=== PATIENT | female | born 1950 | race African-American/Black ===

== ENCOUNTER 2018-10-05 16:36 | Observation (INO) | payer MEDICARE ==
[2018-10-05] VITALS (138 sets, daily range): BP systolic 171; BP diastolic 98; PULSE 73; TEMP 98.8; O2SAT 90–100
[~2018-10-05] VITALS: Ht 157.5 cm; Wt 90.8 kg
[~2018-10-05 16:36] MED LIST: ASPIR-LOW81 MG PO; COZAAR; LABETALOL; TRIAMTERENE/HCT1 CAP PO
[2018-10-05 17:31] LABS: BASO # 0.1 (0.0-0.2); BASO % 0.8 % (0.0-2.0); EOS # 0.1 (0.0-0.7); EOS % 1.7 % (0-4.0); GRAN # 3.5 (1.4-6.5); GRAN % 46.4 % (42.2-75.2); HEMOGLOBIN 11.1 g/dl (12.5-16.0); LYMPH # 3.4 (1.2-3.4); MEAN CELL VOLUME 77 fl (80.0-100.0); MEAN CORPUSCULAR HEMOGLOBIN 24 pg (27.0-31.0); MEAN CORPUSCULAR HGB CONC 30 g/dl (33.0-37.0); MEAN PLATELET VOLUME 9.7 fl (7.4-10.4); MONO # 0.5 (0.1-0.6); PLATELET COUNT 237 K/mm3 (130-400); RED BLOOD COUNT 4.73 M/mm3 (4.10-5.30)
[2018-10-05 17:33] LABS: INR 0.9 (0.8-3.0); PROTHROMBIN TIME 10.4 SECONDS (9.7-12.8)
[2018-10-05 17:37] LABS: HEMATOCRIT 36.5 % (37.0-47.0)
[2018-10-05 17:41] LABS: ALANINE AMINOTRANSFERASE < 6 U/L (9-52); ALBUMIN 4.1 gm/dL (3.5-5.0); ALKALINE PHOSPHATASE 112 U/L (50-136); ANION GAP 7 mmol/L (7-16); AST,SGOT 19 U/L (15-37); BILIRUBIN,TOTAL 0.7 mg/dL (0.0-1.0); BLOOD UREA NITROGEN 15 mg/dL (7-17); C-REACTIVE PROTEIN 1.2 mg/dL (0.0-0.9); CALCIUM 9.3 mg/dL (8.4-10.2); CARBON DIOXIDE 26 mmol/L (22-30); CHLORIDE 107 mmol/L (98-107); CREATININE, serum 0.67 (0.52-1.25); GLUCOSE 149 mg/dL (74-106); POTASSIUM 3.5 mmol/L (3.4-5.0); SODIUM 141 mmol/L (137-145); TOTAL PROTEIN 7.1 gm/dL (6.4-8.2)
[2018-10-05 17:52] LABS: TROPONIN-I 0.062 ng/mL (0.000-0.035)
[2018-10-05] MEDS ORDERED: ACTOS 15MG TAB15 MG PO (17:58)
[2018-10-05] MEDS ORDERED: NORMODYNE200 MG PO (17:59)
[2018-10-05] MEDS ORDERED: NORVASC2.5 MG PO (17:59)
--- NOTE | 2018-10-05 19:58 | NUR ---
Called over to ED at this time and got report on patient from ONI Snyder. Patient will be brought over after CT
--- NOTE | 2018-10-05 20:44 | NUR ---
Patient arrives at this time via stretcher. Patient stands and transfers self to unit bed. She is a little wobbly on her feet but corrects quickly. Once in bed patient is attached to monitoring equipment. Assessment complete. Patient has no complaints of pain or SOB. Assisted patient with getting up to the bathroom. Walked there and back to bed with standby assist. Patient has a small amount of +1 pitting edema in her lower extremities and looks like her abdomen is full of fluid, abdomen is distended. Once settled, patient's family brought into the room. Oscar, son Amos, and granddaughter Shani. Explained to them all what the POC is and what might happen in the morning as far as testing is concerned. Oriented them to the unit and room. Explained the call light and controls on the bed. Patient has no further needs at this time. Will continue to monitor. DAWNA Alejo will be down to see her shortly.
[2018-10-05] MEDS ORDERED: NORVASC 5MG5 MG/TAB PO (22:34)
[2018-10-05] MEDS ORDERED: ASPIRIN 81M81 MG/TA2 PO (22:35)
[2018-10-05 23:09] LABS: COLLECTION METHOD CLEAN CATCH
[2018-10-05 23:16] LABS: PH 7 (5-8); SQUAMOUS EPITHELIAL 0-2 /hpf; URINE APPEARANCE Clear; URINE BACTERIA None Seen /hpf; URINE BILIRUBIN Negative (NEGATIVE); URINE BLOOD Negative (NEGATIVE); URINE COLOR Straw; URINE GLUCOSE Negative (NEGATIVE); URINE KETONE Negative (NEGATIVE); URINE LEUKOCYTE ESTERASE Negative (NEGATIVE); URINE NITRATE Negative (NEGATIVE); URINE PROTEIN(semi-quant) Negative (NEGATIVE); URINE RBC 0-2 /hpf; URINE UROBILINOGEN Negative (NEGATIVE)
[2018-10-06] VITALS (722 sets, daily range): BP systolic 133–149; BP diastolic 67–97; PULSE 67–87; TEMP 97.8–98.8; O2SAT 81–100
--- NOTE | 2018-10-06 | NUR ---
Patient resting in bed at this time. Snack was provided per request her request. Patient is NPO now. Patient has no complaints of pain, but would like to use the restroom again. Assited up, then returned to bed. Patient has had good urine output. No other needs at this time. Will continue to monitor. Call light within reach
--- NOTE | 2018-10-06 04:00 | NUR ---
Patient asleep in bed at this time. Awakens easily to noise in the room. Patient does not have any complaints of SOB or pain. Does request to get up to the bathroom. Assisted with getting up and returning to bed. Patient requests to sleep some more. No further needs at this time. Will continue to monitor. Call light within reach.
[2018-10-06 05:23] LABS: BASO # 0.1 (0.0-0.2); BASO % 0.8 % (0.0-2.0); EOS # 0.1 (0.0-0.7); GRAN # 2.5 (1.4-6.5); GRAN % 41.4 % (42.2-75.2); HEMATOCRIT 37.7 % (37.0-47.0); HEMOGLOBIN 11.4 g/dl (12.5-16.0); LYMPH % 49.5 % (20.0-51.0); MEAN CELL VOLUME 77 fl (80.0-100.0); MEAN CORPUSCULAR HEMOGLOBIN 23 pg (27.0-31.0); MEAN CORPUSCULAR HGB CONC 30 g/dl (33.0-37.0); MEAN PLATELET VOLUME 10.6 fl (7.4-10.4); MONO # 0.4 (0.1-0.6); MONO % 6.1 % (1.7-9.3); PLATELET COUNT 182 K/mm3 (130-400); RED BLOOD COUNT 4.91 M/mm3 (4.10-5.30)
[2018-10-06 05:34] LABS: ALBUMIN 3.9 gm/dL (3.5-5.0); BILIRUBIN,TOTAL 1.1 mg/dL (0.0-1.0); CALCIUM 9.2 mg/dL (8.4-10.2); CHOLESTEROL RISK RATIO 6.1; CREATININE, serum 0.58 (0.52-1.25); POTASSIUM 3.7 mmol/L (3.4-5.0)
[2018-10-06 05:50] LABS: TROPONIN-I 0.075 ng/mL (0.000-0.035)
--- NOTE | 2018-10-06 07:00 | NUR ---
REPORT RECEIVED FROM AMADOR BUNN. CARE ASSUMED.
--- NOTE | 2018-10-06 07:42 | NUR ---
Bedside report given to ONI Marin
--- NOTE | 2018-10-06 11:37 | NUR ---
SW met with patient and family about discharge planning. Patient lives independently at home with her and plans to return there upon discharge. Patient's current PCP is Dr Zaidi but she is working to transition to Dr Blackwood. Patient reports she obtains medications from [facility] in [place] or on [facility]. Patient denies difficulty obtaining medications. Patient reports she has a walker at home for ambulation and she does not use any home health services. Patient does not have a DPOA or Living Will but she reports she needs to complete those forms. SW reported that if patient would like those forms, SW can provide those forms. Patient does not anticipate any discharge needs but with continue to follow as needed.
--- NOTE | 2018-10-06 12:35 | NUR ---
REPORT CALLED TO HERMELINDO BUNN.
--- NOTE | 2018-10-06 12:40 | NUR ---
PT TRANSFERRED VIA WHEELCHAIR TO [facility]. PT'S BELONGINGS TRANSFERRED WITH PATIENT. PT'S AT BEDSIDE.
--- NOTE | 2018-10-06 13:00 | NUR ---
Pt arrived to room 353, she is A/O x3. Her breathing is even and unlabored on RA. Pt denies SOB. No pain, chest pain or palpitations at this time. She denies N/V. Pt denies N/T. Tele leads in place. Pt ordering lunch at this time. No needs, call light within reach. Will continue to monitor.
--- NOTE | 2018-10-06 19:03 | NUR ---
Pt report given to ONI Stern. Pt had uneventful day, no chest pain or palpitations present. Pt updated with POC. No needs at this time. Call light within reach.
--- NOTE | 2018-10-06 20:30 | NUR ---
Initial shift assessment done- denies chest pain/SOB, visiting with family in room, no requests, sitting up in chair-- hoping to go home tomorrow. VSS
[2018-10-07 01:30] VITALS: BP 110/59; PULSE 76; TEMP 98.2
[2018-10-07 04:54] VITALS: BP 141/93; PULSE 72; TEMP 97.6
--- NOTE | 2018-10-07 05:12 | NUR ---
Quiet night- no requests- no chest pain,,sitting at egde of bed-VSS
[2018-10-07 07:12] LABS: BASO # 0.1 (0.0-0.2); EOS # 0.2 (0.0-0.7); EOS % 2.5 % (0-4.0); GRAN # 2.6 (1.4-6.5); GRAN % 44.2 % (42.2-75.2); HEMATOCRIT 37.9 % (37.0-47.0); HEMOGLOBIN 11.3 g/dl (12.5-16.0); LYMPH # 2.7 (1.2-3.4); LYMPH % 45.4 % (20.0-51.0); MEAN CELL VOLUME 76 fl (80.0-100.0); MEAN CORPUSCULAR HEMOGLOBIN 23 pg (27.0-31.0); MEAN CORPUSCULAR HGB CONC 30 g/dl (33.0-37.0); MEAN PLATELET VOLUME 9.7 fl (7.4-10.4); MONO # 0.4 (0.1-0.6); MONO % 6.6 % (1.7-9.3); PLATELET COUNT 250 K/mm3 (130-400); RED BLOOD COUNT 4.99 M/mm3 (4.10-5.30); REDCELL DISTRIBUTION WIDTH-CV 14.1 % (11.5-14.5)
[2018-10-07 07:30] LABS: CALCIUM 9.3 mg/dL (8.4-10.2); CREATININE, serum 0.67 (0.52-1.25)
[2018-10-07 07:39] VITALS: BP 164/95; PULSE 75; TEMP 97.7
--- NOTE | 2018-10-07 08:44 | NUR ---
Patient sitting in bed upon entry. Patient c/o back pain. Administering tylenol. Assessment complete. Patient denies SOB, chest pain, dizziness, palpitations. No nausea or cough. Lung sounds clear throughout. Pulses strong bilaterally. Bowel sounds present X4. Dr. Crews visited, from his standpoint, she is good for discharge. Denies other needs at this time. CAll light within reach.
[2018-10-07] MEDS ORDERED: LIPITOR20 MG PO (10:28)
[2018-10-07 11:46] VITALS: BP 138/76; PULSE 77; TEMP 97.7
[2018-10-07] MEDS ORDERED: GAS RELIEF80 MG PO (12:04)
--- NOTE | 2018-10-07 12:55 | NUR ---
Patient discharging. Discharge instructions and education reviewed and discussed. All questions answered. INT LAC discontinued, catheter tip intact. No complications. Patient escorted out via wheelchair by this nurse. No other needs at this time.
== END 2018-10-07 13:13 | disposition home or self-care (01) ==
LOC: COL.ER 16:36 → ICU 18:59 → COL.ER 18:59 → ICU 18:59 → MEDICAL 10-06 10:46 → ICU 10-06 10:46 → MEDICAL 10-06 10:46 → ICU 10-06 10:47 → MEDICAL 10-06 13:00
PROVIDERS: Emergency Medicine; Nurse Practitioner Family; Physician Assistant; ADMIT Internal Medicine
DX: R10.9 Unspecified abdominal pain (principal); I10 Essential (primary) hypertension; E78.5 Hyperlipidemia, unspecified; Z86.718 Personal history of other venous thrombosis and embolism; E11.9 Type 2 diabetes mellitus without complications; D50.9 Iron deficiency anemia, unspecified; Z90.710 Acquired absence of both cervix and uterus; Z86.73 Personal history of transient ischemic attack (TIA), and cerebral infarction without residual deficits; Z79.82 Long term (current) use of aspirin; Z82.49 Family history of ischemic heart disease and other diseases of the circulatory system; Z80.0 Family history of malignant neoplasm of digestive organs; Z79.84 Long term (current) use of oral hypoglycemic drugs; Z88.8 Allergy status to other drugs, medicaments and biological substances; I25.2 Old myocardial infarction; I34.0 Nonrheumatic mitral (valve) insufficiency
CPT/HCPCS: 99239; G0378; J0360; J1650; J1815; J3480; J7030; Q9967